=== PATIENT | female | born 1940 | race Caucasian/White ===

== ENCOUNTER 2020-11-07 09:21 | Emergency (ER) | payer MEDICARE ==
[2020-11-07 10:15] VITALS: BP 191/65
--- NOTE | 2020-11-07 10:30 | Emergency Department Report ---
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 Patient has had this cough for about a month and a half. She describes as a dry cough. She states that sometimes she has runny nose and nasal congestion. She denies any associated shortness of breath, wheezing, chest pain, fever or chills, vomiting or abdominal pain. She denies any body aches. She denies any lower extremity swelling. Patient states that she has seen her primary care doctor twice since the cough started. She states that she has been prescribed to cough medications, the name of which she does not know as well as 1 round of antibiotics again she does not recall the name of antibiotics. She states that she is taking all the cough medication and antibiotics without much improvement of her cough. Patient states that she try to follow-up with her primary care doctor again around 02 November, but they told her she she has a bill that she has to pay off before they could see her but she states that she did not understand that because she has 3 medical insurance. Patient states that she never had an x-ray since she started with this cough. She is not on any TORITO inhibitors. She has not taken a COVID-19 test since she has had this cough. She also has not received any of the COVID-19 vaccines. Complaint: cough -: Gradual, month(s) (1.5) - Related Data Previous Rx's Medication Instructions Recorded Last Taken Type Benzonatate [Tessalon Perles] 100 mg PO Q8HR PRN #30 capsule 11/07/20 Unknown Rx Cetirizine HCl [Zyrtec 10mg tab] 10 mg PO DAILY #30 tablet 11/07/20 Unknown Rx Fluticasone [Flonase] 2 spray NS QDAY #1 bottle 11/07/20 Unknown Rx ED Review of Systems ROS: Stated complaint: COUGH Other details as noted in HPI Comment: All other systems reviewed and negative Constitutional: denies: chills, fever Eyes: denies: eye pain, eye discharge, vision change ENT: congestion, other (Rhinorrhea) Respiratory: cough. denies: shortness of breath, SOB with exertion, SOB at rest, wheezing Cardiovascular: denies: chest pain, palpitations, dyspnea on exertion, edema, syncope, paroxysmal nocturnal dyspnea Genitourinary: denies: urgency, dysuria, frequency, hematuria, discharge, abnormal menses, dyspareunia Musculoskeletal: denies: back pain, joint swelling, arthralgia Skin: denies: rash, lesions, change in color, change in hair/nails, pruritus Neurological: denies: headache, weakness, numbness, paresthesias, confusion, abnormal gait, vertigo Psychiatric: denies: anxiety, depression, homicidal thoughts, suicidal thoughts Hematological/Lymphatic: denies: easy bleeding, easy bruising ED Past Medical Hx - Past Medical History Previous Medical History?: Yes Hx Hypertension: Yes Additional medical history: CAD - Surgical History Past Surgical History?: Yes Hx Open Heart Surgery: Yes - Social History Smoking Status: Never Smoker Substance Use Type: Alcohol - Medications Home Medications: Home Medications Medication Instructions Recorded Confirmed Last Taken Type Benzonatate [Tessalon Perles] 100 mg PO Q8HR PRN #30 capsule 11/07/20 Unknown Rx Cetirizine HCl [Zyrtec 10mg tab] 10 mg PO DAILY #30 tablet 11/07/20 Unknown Rx Fluticasone [Flonase] 2 spray NS QDAY #1 bottle 11/07/20 Unknown Rx ED Physical Exam - General Limitations: No Limitations General appearance: alert, in no apparent distress - Head Head exam: Present: atraumatic, normocephalic, normal inspection - Eye Eye exam: Present: normal appearance, PERRL, EOMI Pupils: Present: normal accommodation - ENT ENT exam: Present: normal exam, mucous membranes moist, TM's normal bilaterally - Neck Neck exam: Present: normal inspection, full ROM - Respiratory Respiratory exam: Present: normal lung sounds bilaterally. Absent: respiratory distress, wheezes, rales, rhonchi, stridor - Cardiovascular Cardiovascular Exam: Present: regular rate, normal rhythm, normal heart sounds - GI/Abdominal GI/Abdominal exam: Present: soft. Absent: distended, tenderness, guarding, rebound - Extremities Exam Extremities exam: Present: normal inspection. Absent: pedal edema, calf tenderness - Neurological Exam Neurological exam: Present: alert, oriented X3, CN II-XII intact, normal gait - Psychiatric Psychiatric exam: Present: normal affect, normal mood - Skin Skin exam: Present: intact ED Course Vital Signs 11/07/20 11/07/20 10:07 12:11 Temperature 98.1 F Pulse Rate 62 Respiratory 18 Rate Blood Pressure 191/65 O2 Sat by Pulse 98 98 Oximetry ED Medical Decision Making - Radiology Data Radiology results: report reviewed Patient: TAVON REYEZ MR#: [id number] 69 : 1940 Acct:[id number] Age/Sex: 80 / F ADM Date: 11/07/20 Loc: ED Attending Dr: Ordering Physician: COLTEN PIMENTEL Date of Service: 11/07/20 Procedure(s): XR chest routine 2V Accession Number(s): [id number] cc: COLTEN PIMENTEL Fluoro Time In Minutes: CHEST 2 VIEWS INDICATION / CLINICAL INFORMATION: cough x 1.5mth. COMPARISON: None available. FINDINGS: SUPPORT DEVICES: None. HEART / MEDIASTINUM: Sternotomy. Cardiac silhouette size is normal. LUNGS / PLEURA: No significant pulmonary or pleural abnormality. No pneumothorax. ADDITIONAL FINDINGS: No significant additional findings. IMPRESSION: 1. No acute findings. Signer Name: Paula Rodriguez MD Signed: 11/07/2020 10:58 AM Workstation Name: [id number] Transcribed By: Dictated By: Paula Rodriguez MD Electronically Authenticated By: Paula Rodriguez MD Signed Date/Time: 11/07/20 1058 DD/ 1057 TD/TT: - Medical Decision Making Chest x-ray shows nothing acute. Patient is well-appearing, not toxic and not in any acute pain or respiratory distress. She is neurologically intact with a normal gait. She is afebrile, not tachycardic, or hypoxic or tachypneic. Her blood pressure is elevated but she has a known history of hypertension and she has no symptoms related to elevated blood pressure at this time. Other than the cough and some mild URI symptoms, she denies any other symptoms. At this time there is no indication for any additional testing. Discussed x-ray results with patient and microsoft net developer. Explained to them that cough could be related to sinuses/allergies and and she will be prescribed medications to see if that will help the cough but recommend that she keeps her appointment with her primary care doctor for Monday because if her cough does not get better she may need to be referred to line server and/or alarm signal operator. Both patient and microsoft net developer expressed understanding of instructions and agree with plan. Patient was stable at time of discharge. Critical care attestation.: If time is entered above; I have spent that time in minutes in the direct care of this critically ill patient, excluding procedure time. ED Disposition Clinical Impression: Cough Disposition: DC-01 TO HOME OR SELFCARE Is pt being admited?: No Does the pt Need Aspirin: No Condition: Stable Instructions: Cough, Adult, [id number] Additional Instructions: Recommend that you take the Flonase and the Zyrtec as prescribed. Take the Tessalon Perles as needed to help with cough. Recommend that you keep your appointment with your primary care doctor for Monday, he may refer you to an alarm signal operator if your symptoms persist. Return to the ER if your symptoms changes or worsens in any way. Prescriptions: Fluticasone [Flonase] 2 spray NS QDAY #1 bottle Benzonatate [Tessalon Perles] 100 mg PO Q8HR PRN #30 capsule PRN Reason: Cough Cetirizine HCl [Zyrtec 10mg tab] 10 mg PO DAILY #30 tablet Referrals: JUSTINE RAMIREZ MD [Referring] - 3-5 Days Time of Disposition: 11:53
--- NOTE | 2020-11-07 11:02 | XRay Report ---
CHEST 2 VIEWS INDICATION / CLINICAL INFORMATION: cough x 1.5mth. COMPARISON: None available. FINDINGS: SUPPORT DEVICES: None. HEART / MEDIASTINUM: Sternotomy. Cardiac silhouette size is normal. LUNGS / PLEURA: No significant pulmonary or pleural abnormality. No pneumothorax. ADDITIONAL FINDINGS: No significant additional findings. IMPRESSION: 1. No acute findings. Signer Name: Paula Rodriguez MD Signed: 11/07/2020 10:58 AM Workstation Name: [id number]
== END 2020-11-07 12:12 | disposition home or self-care (01) ==
LOC: ED 09:21
DX: R05 Cough (principal); J34.89 Other specified disorders of nose and nasal sinuses; R09.81 Nasal congestion
CPT/HCPCS: 71046; 99283

== ENCOUNTER 2021-09-20 13:41 | Emergency (ER) | payer MEDICARE ==
[2021-09-20 14:04] VITALS: BP 182/71
== END 2021-09-21 02:50 | disposition left against medical advice (07) ==
LOC: ED 13:41
DX: S31.030A Puncture wound without foreign body of lower back and pelvis without penetration into retroperitoneum, initial encounter (principal); Z53.21 Procedure and treatment not carried out due to patient leaving prior to being seen by health care provider; W64.XXXA Exposure to other animate mechanical forces, initial encounter; Y93.9 Activity, unspecified; Y92.89 Other specified places as the place of occurrence of the external cause; Y99.8 Other external cause status